=== PATIENT | female | born 1960 | race Caucasian/White ===

== ENCOUNTER 2021-06-19 20:12 | Emergency (ER) | payer OTHER ==
[2021-06-19 21:16] LABS: HEMOGLOBIN 13.4 gm/dl (12.3-15.3); RED BLOOD COUNT 4.59 M/UL (4.00-5.10)
[2021-06-19 21:39] LABS: BUN/CREATININE RATIO 13 (0-10)
[2021-06-20] MEDS ORDERED: ONDANSETRON ODT4 MG SL (02:31)
[2021-06-20] MEDS ORDERED: CEPHALEXIN500 M1 PO (02:31)
[2021-06-20] MEDS ORDERED: MECLIZINE HCL25 MG PO (02:31)
== END 2021-06-20 03:15 | disposition home or self-care (01) ==
LOC: ER1 20:12
PROVIDERS: Family Medicine
DX: R94.31 Abnormal electrocardiogram [ECG] [EKG] (principal); N39.0 Urinary tract infection, site not specified; Z20.822 Contact with and (suspected) exposure to COVID-19; E10.9 Type 1 diabetes mellitus without complications; I10 Essential (primary) hypertension; F17.200 Nicotine dependence, unspecified, uncomplicated
CPT/HCPCS: 70450; 71045; 80053; 81001; 82550; 82553; 83874; 84484; 85025; 93005; 96374; 99284; J2405; U0002